=== PATIENT | male | born 1960 | race Caucasian/White ===

== ENCOUNTER → 2016-06-09 | Outpatient (CLI) | payer MEDICARE, OTHER | LOC: KOH-I 10:00 | DX: M54.2 Cervicalgia (principal); M54.5 Low back pain; M50.31 Other cervical disc degeneration, high cervical region; Z98.1 Arthrodesis status; M51.37 Other intervertebral disc degeneration, lumbosacral region | CPT/HCPCS: 72141; 72148 ==

== ENCOUNTER → 2016-07-09 | Outpatient (CLI) | payer MEDICARE, OTHER | LOC: KOH-I 08:00 | DX: E78.5 Hyperlipidemia, unspecified (principal); N28.89 Other specified disorders of kidney and ureter; N28.1 Cyst of kidney, acquired | CPT/HCPCS: 93975 ==